=== PATIENT | female | born 1970 ===

== ENCOUNTER 2016-10-14 16:47 | Inpatient (IN) | payer BC ==
[2016-10-14] MEDS ORDERED: Insulin Regular 100 units/ml ONE (17:55)
--- NOTE | 2016-10-14 17:56 | ED PDOC ---
HPI: Wound Care - HPI Time Seen by Provider: 10/14/16 17:33 Chief Complaint (Nursing): Abnormal Skin Integrity Chief Complaint (Provider): skin lesion/DM History Per: Patient Exam Limitations: no limitations Additional Complaint(s): 46yo F in ED for eval of right first toe pain x 1day with redness, swelling and pain now extending to dorsum of foot with worsening pain. pt admits to chills body aches and nausea. Pt states in August she sustained an ulcer to the plantar aspect of her first toe , which she states has been healing , however she noted a flare up yesterday. PT also states she has been having trouble controlling her BS this Week-she is insulin dependent however noted her BS to be over 400 daily. Has an appt her her pmd tomorrow. PMD: [facility] Hx: HTN, DM, Past Medical History Reviewed: Historical Data, Nursing Documentation, Vital Signs Vital Signs: Last Vital Signs Temp 98.5 F 10/14/16 16:56 Pulse 112 H 10/14/16 16:56 Resp 16 10/14/16 16:56 BP 140/78 10/14/16 16:56 Pulse Ox 99 10/14/16 16:56 - Medical History PMH: No Chronic Diseases - Surgical History Surgical History: Cholecystectomy - Family History Family History: States: No Known Family Hx - Allergies Allergies/Adverse Reactions: Allergies Allergy/AdvReac Type Severity Reaction Status Date / Time No Known Allergies Allergy Verified 10/14/16 16:55 Review of Systems ROS Statement: Except As Marked, All Systems Reviewed And Found Negative Constitutional: Positive for: Chills, Malaise. Negative for: Fever Cardiovascular: Negative for: Chest Pain, Palpitations Respiratory: Negative for: Cough, Shortness of Breath Gastrointestinal: Positive for: Nausea. Negative for: Vomiting, Abdominal Pain Musculoskeletal: Positive for: Foot Pain Physical Exam - Reviewed Nursing Documentation Reviewed: Yes Vital Signs Reviewed: Yes - Physical Exam Appears: Positive for: Non-toxic, No Acute Distress, Uncomfortable Head Exam: Positive for: ATRAUMATIC, NORMAL INSPECTION, NORMOCEPHALIC Skin: Positive for: Normal Color, Warm, DRY Cardiovascular/Chest: Positive for: Regular Rate, Rhythm Respiratory: Positive for: CNT, Normal Breath Sounds Gastrointestinal/Abdominal: Positive for: Normal Exam, Bowel Sounds, Soft Extremity: Positive for: Other (right foot: first digit plantar aspect- ulceration, pus formation, erythema with streaking . erythema with streaking noted to medial asepct of foot and to dorsum of foot and warmth with pain on ROM. no draainge from wound site. good pulses. ) Neurologic/Psych: Positive for: Alert, Oriented - Laboratory Results Result Diagrams: 10/14/16 17:55 10/14/16 17:55 - ECG O2 Sat by Pulse Oximetry: 99 - Progress ED Course And Treament: impression: foot cellulites-will get xray of foot, labs- ESR, Bld Cx, CBC/CMP/UA /ABG impression: uncontrolled BS-will get 1NS fluid bolus, insulin Regular 8mg, podiatry consulted will see pt will give pt zosyn IV. Condition: Re-examined (ABG-no anion gap. ) Medical Decision Making Medical Decision Making: Pt will be admitted to [facility] for uncontrolled DM and cellulites. Disposition - Clinical Impression Clinical Impression: Uncontrolled diabetes mellitus, Cellulitis - Patient ED Disposition Is Patient to be Admitted: Yes - Disposition Disposition Time: 19:21 Condition: STABLE - Pt Status Changed To: Hospital Disposition Of: Inpatient - Admit Certification Admit to Inpatient:: After my assessment, the patient will require hospitalization for at least two midnights. This is because of the severity of symptoms shown, intensity of services needed, and/or the medical risk in this patient being treated as an outpatient. - POA Present On Arrival: Poor Glycemic Control
[2016-10-14] MEDS ORDERED: Sodium Chloride 0.9% 1,000 ML IV STA (17:57)
[2016-10-14] MEDS: Insulin Regular 100 units/ml IVP SCH (18:07)
[2016-10-14 18:08] LABS: BASO # 0.1 K/uL (0.0-0.2); BASO % 0.8 % (0.0-2.0); EOS # 0.2 K/uL (0.0-0.7); EOS % 1.9 % (0.0-4.0); HEMATOCRIT 38.9 % (34.0-47.0); LYMPH # 3.6 K/uL (1.0-4.3); LYMPH % 31.8 % (20.0-40.0); MEAN CELL VOLUME 85.7 fl (81.0-99.0); MEAN CORPUSCULAR HEMOGLOBIN 28.5 pg (27.0-31.0); MEAN CORPUSCULAR HGB CONC 33.2 g/dL (33.0-37.0); MEAN PLATELET VOLUME 8.3 fl (7.2-11.7); MONO # 0.6 K/uL (0.0-0.8); MONO % 5.2 % (0.0-10.0); NEUT # 6.8 K/uL (1.8-7.0); NEUT % 60.3 % (50.0-75.0); RED CELL DISTRIBUTION WIDTH 12.9 % (11.5-14.5); WHITE BLOOD COUNT 11.3 K/uL (4.8-10.8)
[2016-10-14 18:14] LABS: RBC URINE 5 /hpf (0-3); URINE BACTERIA RARE (<OCC); URINE BILIRUBIN NEGATIVE (NEGATIVE); URINE BLOOD MODERATE (NEGATIVE); URINE COLOR STRAW (YELLOW); URINE GLUCOSE (UA) >=500 mg/dL (Normal); URINE KETONE NEGATIVE (NEGATIVE); URINE LEUKOCYTE ESTERASE TRACE Leu/uL (Negative); URINE PROTEIN 30 mg/dL (NEGATIVE); URINE UROBILINOGEN 0.2-1.0 mg/dL (0.2-1.0); WBC URINE 1 /hpf (0-5)
[2016-10-14 18:20] LABS: ALB/GLOB RATIO 1.2 (1.0-2.1); ALKALINE PHOSPHATASE 105 U/L (38-126); ALT/SGPT 27 U/L (9-52); AST/SGOT 16 U/L (14-36); BILIRUBIN,TOTAL 0.3 mg/dl (0.2-1.3); BLOOD UREA NITROGEN 13 mg/dl (7-17); CALCIUM 9.5 mg/dL (8.4-10.2); CARBON DIOXIDE 26 mmol/L (22-30); CHLORIDE 97 mmol/L (98-107); GFR AFRICAN-AMERICAN > 60; POTASSIUM 4.2 MMOL/L (3.6-5.0); SODIUM 130 mmol/l (132-148); TOTAL PROTEIN 7.4 G/DL (6.3-8.2)
[2016-10-14 18:33] LABS: GLUCOSE,RANDOM 442 mg/dL (65-105)
[2016-10-14 18:51] LABS: ABG ALLEN TEST YES; ARTERIAL BLOOD GAS O2 CAPACITY 15.6 mL/dL (16-24); ARTERIAL BLOOD GAS O2 CONTENT 15.6 ML/dL (15-23); ARTERIAL BLOOD GAS PH 7.43 (7.35-7.45); ARTERIAL BLOOD GAS PO2 79 mm/Hg (80-100); ARTERIAL BLOOD HGB O2 SAT 91.4 % (95.0-98.0); CARBOXYHEMOGLOBIN 6.4 % (0.5-1.5); HHB -0.2 % (0.0-5.0); METHEMOGLOBIN 2.4 % (0.0-3.0)
[2016-10-14] MEDS ORDERED: Piperacillin/Tazobact 3.375 GM in Sodium Chloride 0.9% 100 ML IVPB STA (19:04)
[2016-10-14] MEDS ORDERED: Piperacillin/Tazobact 3.375 gm Inj IVPB ONE (19:37)
--- NOTE | 2016-10-14 19:39 | CP.PCM.HP ---
<Palmira Dixon - Last Filed: 10/14/16 21:43> History of Present Illness - History of Present Illness History of Present Illness: CC: Chills, RIGHT toe pain 46F p/w worsening RIGHT great toe pain over the past 2 days associated with chills for the past 3-4 days especially at night, but denies fevers. Also, she reports inability to control her sugars for "a while now". Patient describes original injury was after walking "alot" in [place] and family noticed blister and bleeding in August, and received a topical antibiotic with partial improvement, but now acutely worsening. Otherwise, she denies any dizziness, headaches, SOB , chest pain/palpitations, vomiting, abdominal pain, dysuria, diarrhea. However , she has been having fatigue, polydipsia, and polyuria. PMD: [facility] PMH: DM, HTN PSH: Lap Yolanda, C-sxn x2, partial Hysterectomy Smoke: 1/2-1ppk/ day for 25 years Alcohol: Occ ALL: NKDA LOBO: See Med Rec ED COURSE VSS: 36.9- 112- 140/78- 16- 99% CBC: 11.3> 12.9/38.9< 286 CMP: 138C/4.2- 97L/26- 13/0.7, Gluc- 442, Ca-9.5, TBili- 0.3, ALP/AST/ALT- 105/ 16/27, TProt/Alb- 7.4/4.1 ABG: pH-7.43 ESR: 44 BCx: PENDING UA: Negative for Ketones, LE- trace, Blood-pos, RBC- 5H RIGHT foot X-rays: Official read pending NS 1L bolus x1 Insulin 8U, IV Present on Admission - Present on Admission Any Indicators Present on Admission: Yes History of Uncontrolled Diabetes: Yes Review of Systems - Review of Systems All systems: reviewed and no additional remarkable complaints except - Constitutional Constitutional: Chills - Gastrointestinal Gastrointestinal: Nausea - Endocrine Endocrine: Polydipsia, Polyuria Past Patient History - ENDOCRINE/METABOLIC Hx Diabetes Mellitus Type 2: Yes - PSYCHIATRIC Hx Substance Use: No - SURGICAL HISTORY Hx Cholecystectomy: Yes - ANESTHESIA Hx Anesthesia: Yes Hx Anesthesia Reactions: No Meds Allergies/Adverse Reactions: Allergies Allergy/AdvReac Type Severity Reaction Status Date / Time No Known Allergies Allergy Verified 10/14/16 16:55 Physical Exam - Constitutional Appears: Well, Non-toxic, No Acute Distress - Head Exam Head Exam: ATRAUMATIC, NORMAL INSPECTION - Eye Exam Eye Exam: EOMI, PERRL - ENT Exam ENT Exam: Mucous Membranes Moist, Normal Exam - Neck Exam Neck exam: Positive for: Full Rom, Normal Inspection. Negative for: Lymphadenopathy - Respiratory Exam Respiratory Exam: Clear to Auscultation Bilateral, NORMAL BREATHING PATTERN. absent: Rales, Wheezes - Cardiovascular Exam Cardiovascular Exam: REGULAR RHYTHM. absent: JVD - GI/Abdominal Exam GI & Abdominal Exam: Normal Bowel Sounds, Soft. absent: Tenderness - Extremities Exam Extremities exam: Positive for: full ROM, joint swelling (RIGHT great MCP), normal capillary refill, tenderness (RIGHT great toe see below), pedal pulses present. Negative for: calf tenderness - Expanded Lower Extremities Exam Right Foot/Toe exam: erythema (Right great MCP, non-blanchable), swelling (Right great toe and dorsum of foot). absent: crepitus, normal inspection (Original injury was blister in August/2016 that never really went away), tenderness ( patient cannot feel), tenderness at base of 5th metatarsal (discoloration at plantar aspect) - Neurological Exam Neurological exam: Alert, Oriented x3 - Psychiatric Exam Psychiatric exam: Normal Affect, Normal Mood - Skin Skin Exam: Normal Color, Warm Results - Vital Signs Recent Vital Signs: Last Vital Signs Temp 36.9 C 10/14/16 16:56 Pulse 90 10/14/16 19:36 Resp 16 10/14/16 19:36 BP 142/89 10/14/16 19:36 Pulse Ox 100 10/14/16 19:36 - Labs Result Diagrams: 10/14/16 17:55 10/14/16 17:55 Assessment & Plan (1) Infected blister of great toe of right foot Assessment and Plan: Concerning for underlying bony involvement given incomplete healing over 2 months. X-rays negative, however will likely require bedside debridement and MRI. - Podiatry Consult - ID Consult (Dr Hammnod) - Zosyn 3.375mg, IV, Q6H Status: Acute (2) Diabetes Assessment and Plan: Uncontrolled and apparently a chronic issue. This admission no concern for DKA or HHS. Will start pt on Glyburide. - Referral to [employer] placed - Resume Levemir 22U, SC, HS - Accu-check ACHS - SSI, Lispro, moderate - Glyburide 5mg, PO, ACB - Hypoglycemic Bundle - Hgb A1C: PENDING - MOD CHO Status: Acute (3) Hypertension Assessment and Plan: Stable. Not at target in the ED, but will monitor and adjust as necessary after patient is settled. - Resume home medication - Trend BP Status: Acute (4) DVT prophylaxis Assessment and Plan: Lovenox 40mg, SC, HS Status: Acute <Mt Gregg - Last Filed: 10/19/16 07:10> Results - Vital Signs Recent Vital Signs: Last Vital Signs Temp 99.4 F 10/16/16 16:03 Pulse 70 10/16/16 16:03 Resp 18 10/16/16 16:03 BP 155/93 H 10/16/16 16:03 Pulse Ox 96 10/16/16 16:03 - Labs Result Diagrams: 10/16/16 05:30 10/16/16 05:30 Attending/Attestation - Attestation I have personally seen and examined this patient.: Yes I have fully participated in the care of the patient.: Yes I have reviewed all pertinent clinical information: Yes
[2016-10-14] MEDS ORDERED: Glucagon Recombinant 1 mg Inj IM PRN (19:47)
[2016-10-14] MEDS ORDERED: Dextrose 50% SYRINGE Inj (50 ml) IV PRN (19:47)
--- NOTE | 2016-10-14 21:23 | CP.PCM.CON ---
History of Present Illness - History of Present Illness History of Present Illness: 46 y/o female with pmhx of DM and HTN seen at bedside for right foot redness and swelling. She states that she has had severe pain and chills over the past 2 days, but denies any fevers. She states that she was walking a lot in [place] and her family noticed she was bleeding from her foot that a blister had popped, she went to her PCP and he gave her a cream to apply topically which she state helped a lot. Patient states that the blister reformed and now has caused pain, redness and swelling to her right big toe. Patient denies any other pedal complaints. SHe denies any trauma to her foot. Patient denies n/f/v/d/c/sob PMD: [facility] PMH: DM, HTN PSH: [place] Torressxn x2, partial Hysterectomy Smoke: 1/2-1ppk/ day for 25 years Alcohol: Occ ALL: NKDA LOBO: See Med Rec Review of Systems - Constitutional Constitutional: As Per HPI Past Patient History - Past Social History Smoking Status: Never Smoked - CARDIAC Hx Cardiac Disorders: Yes (HTN) - ENDOCRINE/METABOLIC Hx Diabetes Mellitus Type 2: Yes - PSYCHIATRIC Hx Substance Use: No - SURGICAL HISTORY Hx Cholecystectomy: Yes - ANESTHESIA Hx Anesthesia: Yes Hx Anesthesia Reactions: No Meds Allergies/Adverse Reactions: Allergies Allergy/AdvReac Type Severity Reaction Status Date / Time No Known Allergies Allergy Verified 10/14/16 16:55 - Medications Medications: Current Medications Acetaminophen (Tylenol 325mg Tab) 650 mg PO Q4 PRN PRN Reason: Pain, Mild (1-3) Atorvastatin Calcium (Lipitor) 10 mg PO HS [facility] Dextrose (Dextrose 50% Inj) 0 ml IV STAT PRN; Protocol PRN Reason: Hyglycemia Protocol Dextrose (Glutose 15) 0 gm PO ONCE PRN; Protocol PRN Reason: Hypoglycemia Protocol Enoxaparin Sodium (Lovenox) 40 mg SC HS [facility] PRN Reason: Protocol Glucagon (Glucagen Diagnostic Kit) 0 mg IM STAT PRN; Protocol PRN Reason: Hypoglycemia Protocol Piperacillin Sod/Tazobactam (Sod 3.375 gm/ Sodium Chloride) 100 mls @ 100 mls/ hr IVPB Q6 [facility] Insulin Detemir (Levemir) 22 units SC HS [facility] Insulin Human Lispro (Humalog) 0 units SC ACTID [facility] PRN Reason: Protocol Insulin Human Regular (Humulin R) 8 units IVP ACCU-CHECK [facility] Last Admin: 10/14/16 18:07 Dose: 8 unit Ketorolac Tromethamine (Toradol) 15 mg IVP Q6 PRN PRN Reason: Pain, moderate (4-7) Ketorolac Tromethamine (Toradol) 30 mg IVP Q6 PRN PRN Reason: Pain, severe (8-10) Mirtazapine (Remeron) 15 mg PO HS [facility] Ramipril (Altace) 5 mg PO HS [facility] Physical Exam - Constitutional Appears: Well, Non-toxic, No Acute Distress - Extremities Exam Additional comments: Vasc: DP/PT 2/4 b/l, TG wnl, CFT < 3sec to all digits neuro: grossly diminished derm: blister formation noted to plantar right hallux with necrotic center, erythema and edema noted to right hallux extending proximally to midfoot, mildly fluctuant, no malodor, no drainage, no active bleeding, no tunneling or undermining ortho: pain on palpation to right hallux Results - Vital Signs Recent Vital Signs: Last Vital Signs Temp 98.5 F 10/14/16 20:56 Pulse 85 10/14/16 20:56 Resp 20 10/14/16 20:56 BP 141/88 10/14/16 20:56 Pulse Ox 99 10/14/16 20:56 - Labs Result Diagrams: 10/14/16 17:55 10/14/16 17:55 Assessment & Plan - Assessment and Plan (Free Text) Assessment: 46 y/o female seen at bedside with pmhx of DM and HTN for right foot cellulitis secondary to diabetes Plan: patient evaluated and chart reviewed discussed in detail with attending Dr. Ziegler labs and vitals reviewed; afebrile, WBC 11. 3 X rays show no fracture or dislocation, soft tissue edema applied DSD to right foot f/u with wound cx and debridement tomorrow continue IV abx, as per ID recs podiatry will continue to follow
[2016-10-14] MEDS: Piperacillin/Tazobact 3.375 GM in Sodium Chloride 0.9% 100 ML IVPB SCH (21:28)
[2016-10-14] MEDS: Enoxaparin 40 mg Syringe SC SCH (21:30)
[2016-10-14] MEDS: Insulin Detemir 100 Units/ml Inj SC SCH (22:36)
[2016-10-14] MEDS: Insulin Lispro (humaLOG) 100 Units/ml Inj SC SCH (22:37)
[2016-10-14] MEDS ORDERED: Insulin Regular 100 units/ml SC SCH (23:00)
[2016-10-15] MEDS: Piperacillin/Tazobact 3.375 GM in Sodium Chloride 0.9% 100 ML IVPB SCH ×4 (04:32→22:03)
[2016-10-15] MEDS: Insulin Regular 100 units/ml IVP SCH ×2 (06:15→14:21)
[2016-10-15 06:51] LABS: HEMATOCRIT 34.3 % (34.0-47.0); MEAN CELL VOLUME 84.5 fl (81.0-99.0); MEAN CORPUSCULAR HEMOGLOBIN 28.7 pg (27.0-31.0); RED CELL DISTRIBUTION WIDTH 13.4 % (11.5-14.5); WHITE BLOOD COUNT 9.6 K/uL (4.8-10.8)
--- NOTE | 2016-10-15 06:51 | CP.PCM.PN ---
<Viri Marie - Last Filed: 10/15/16 17:32> Subjective - Date & Time of Evaluation Date of Evaluation: 10/15/16 Time of Evaluation: 07:10 - Subjective Subjective: Patient denies any acute events overnight. States she numbness of her feet bilaterally and not currently pain, overall feels well. Denies fever, sob, chest pain, abdominal pain, nausea vomiting. Objective - Vital Signs/Intake and Output Vital Signs (last 24 hours): Temp Pulse Resp BP Pulse Ox 98.5 F 85 20 141/88 99 10/14/16 20:56 10/14/16 21:50 10/14/16 21:50 10/14/16 21:30 10/14/16 21:50 - Medications Medications: Current Medications Acetaminophen (Tylenol 325mg Tab) 650 mg PO Q4 PRN PRN Reason: Pain, Mild (1-3) Atorvastatin Calcium (Lipitor) 10 mg PO HS [facility] Last Admin: 10/14/16 21:30 Dose: 10 mg Dextrose (Dextrose 50% Inj) 0 ml IV STAT PRN; Protocol PRN Reason: Hyglycemia Protocol Dextrose (Glutose 15) 0 gm PO ONCE PRN; Protocol PRN Reason: Hypoglycemia Protocol Enoxaparin Sodium (Lovenox) 40 mg SC HS [facility] PRN Reason: Protocol Last Admin: 10/14/16 21:30 Dose: 40 mg Glucagon (Glucagen Diagnostic Kit) 0 mg IM STAT PRN; Protocol PRN Reason: Hypoglycemia Protocol Glyburide (Micronase) 5 mg PO BRK [facility] Piperacillin Sod/Tazobactam (Sod 3.375 gm/ Sodium Chloride) 100 mls @ 100 mls/ hr IVPB Q6 [facility] Last Admin: 10/15/16 04:32 Dose: 100 mls/hr Insulin Detemir (Levemir) 22 units SC HS [facility] Last Admin: 10/14/16 22:36 Dose: 22 units Insulin Human Lispro (Humalog) 0 units SC ACTID [facility] PRN Reason: Protocol Last Admin: 10/14/16 22:37 Dose: 3 units Insulin Human Regular (Humulin R) 8 units IVP ACCU-CHECK [facility] Last Admin: 10/15/16 06:15 Dose: 8 unit Ketorolac Tromethamine (Toradol) 15 mg IVP Q6 PRN PRN Reason: Pain, moderate (4-7) Ketorolac Tromethamine (Toradol) 30 mg IVP Q6 PRN PRN Reason: Pain, severe (8-10) Mirtazapine (Remeron) 15 mg PO HS [facility] Last Admin: 10/14/16 21:30 Dose: 15 mg Ramipril (Altace) 5 mg PO [facility] Last Admin: 10/14/16 21:30 Dose: 5 mg - Constitutional Appears: Non-toxic, No Acute Distress - Eye Exam Eye Exam: Normal appearance - ENT Exam ENT Exam: Mucous Membranes Moist - Respiratory Exam Respiratory Exam: NORMAL BREATHING PATTERN - Cardiovascular Exam Cardiovascular Exam: REGULAR RHYTHM, +S1, +S2 - GI/Abdominal Exam GI & Abdominal Exam: Soft, Normal Bowel Sounds. absent: Tenderness - Extremities Exam Extremities Exam: absent: Calf Tenderness, Pedal Edema Additional comments: foot exam: b/l pulses palpable, sensation diminished - Neurological Exam Neurological Exam: Awake, CN II-XII Intact, Oriented x3 - Psychiatric Exam Psychiatric exam: Normal Affect, Normal Mood - Skin Additional comments: right hallux: necrotic center, erythema and edema extending proximally, no malodor or drainage Assessment and Plan - Assessment and Plan (Free Text) Assessment: 46 year old female with uncontrolled DM admitted for infections of great toe of right foot. rule out osteomyelitis (1) Infected blister of great toe of right foot Assessment and Plan: Concerning for underlying bony involvement given incomplete healing over 2 months. - Podiatry following, bedside debridement done MRI done pending report - ESR 44 - Podiatry Consult - ID Consult (Dr Hammond) - Zosyn 3.375mg, IV, Q6H Status: Acute (2) Diabetes Assessment and Plan: Uncontrolled and apparently a chronic issue. This admission no concern for DKA or HHS. Will start pt on Glyburide. - Referral to [employer] placed - Resume Levemir 22U, SC, HS - Accu-check ACHS - SSI, Lispro, moderate - Hypoglycemic Bundle - Hgb A1C: 12 - MOD CHO Status: Acute (3) Hypertension Assessment and Plan: chronic, Stable.- Resume home medication Status: Acute (4) DVT prophylaxis Assessment and Plan: Lovenox 40mg, SC, HS Status: Acute <Leroy Moralez - Last Filed: 10/16/16 06:43> Objective - Vital Signs/Intake and Output Vital Signs (last 24 hours): Temp Pulse Resp BP Pulse Ox 99.5 F 81 20 140/84 99 10/16/16 00:46 10/16/16 00:46 10/16/16 00:46 10/16/16 00:46 10/16/16 00:46 - Medications Medications: Current Medications Acetaminophen (Tylenol 325mg Tab) 650 mg PO Q4 PRN PRN Reason: Pain, Mild (1-3) Last Admin: 10/15/16 23:47 Dose: 650 mg Atorvastatin Calcium (Lipitor) 10 mg PO HS [facility] Last Admin: 10/15/16 22:04 Dose: 10 mg Dextrose (Dextrose 50% Inj) 0 ml IV STAT PRN; Protocol PRN Reason: Hyglycemia Protocol Dextrose (Glutose 15) 0 gm PO ONCE PRN; Protocol PRN Reason: Hypoglycemia Protocol Enoxaparin Sodium (Lovenox) 40 mg SC HS [facility] PRN Reason: Protocol Last Admin: 10/15/16 22:05 Dose: 40 mg Glucagon (Glucagen Diagnostic Kit) 0 mg IM STAT PRN; Protocol PRN Reason: Hypoglycemia Protocol Piperacillin Sod/Tazobactam (Sod 3.375 gm/ Sodium Chloride) 100 mls @ 100 mls/ hr IVPB Q6 [facility] Last Admin: 10/16/16 04:32 Dose: 100 mls/hr Insulin Detemir (Levemir) 22 units SC [facility] Last Admin: 10/15/16 22:04 Dose: 22 units Insulin Human Lispro (Humalog) [facility]: Protocol Last Admin: 10/15/16 16:30 Dose: 4 units Ketorolac Tromethamine (Toradol) 15 mg IVP Q6 PRN PRN Reason: Pain, moderate (4-7) Last Admin: 10/15/16 12:13 Dose: 15 mg Ketorolac Tromethamine (Toradol) 30 mg IVP Q6 PRN PRN Reason: Pain, severe (8-10) Mirtazapine (Remeron) 15 mg PO [facility] Last Admin: 10/15/16 22:03 Dose: 15 mg Nicotine (Nicoderm Cq) 1 patch TD DAILY [facility] Last Admin: 10/15/16 16:24 Dose: 1 patch Ramipril (Altace) 5 mg PO [facility] Last Admin: 10/15/16 22:03 Dose: 5 mg - Labs Labs: 10/15/16 05:40 10/15/16 05:40 Attending/Attestation - Attestation I have personally seen and examined this patient.: Yes I have fully participated in the care of the patient.: Yes I have reviewed all pertinent clinical information, including history, physical exam and plan: Yes
[2016-10-15 07:08] LABS: BLOOD UREA NITROGEN 13 mg/dl (7-17); CALCIUM 8.6 mg/dL (8.4-10.2); CARBON DIOXIDE 25 mmol/L (22-30); CHLORIDE 105 mmol/L (98-107); GFR AFRICAN-AMERICAN > 60; GLUCOSE,RANDOM 191 mg/dL (65-105); POTASSIUM 3.4 MMOL/L (3.6-5.0); SODIUM 137 mmol/l (132-148)
[2016-10-15] MEDS: Insulin Lispro (humaLOG) 100 Units/ml Inj SC SCH ×3 (08:30→16:30)
[2016-10-15] MEDS ORDERED: Povidone Iodine Topical 10% Sol ONE (11:41)
--- NOTE | 2016-10-15 12:11 | CP.PCM.PN ---
Subjective - Date & Time of Evaluation Date of Evaluation: 10/15/16 Time of Evaluation: 12:09 - Subjective Subjective: 46 y/o female seen at bedside with attending Dr. Ziegler for right foot cellulitis. Patient denies any acute events overnight. She states that her toe feels numb but also a little painful. Patient denies any other pedal complaints at this time. Dressing remains clean,dry,intact. Patient denies n/f/v/d/c/sob. Objective - Vital Signs/Intake and Output Vital Signs (last 24 hours): Temp Pulse Resp BP Pulse Ox 98.4 F 79 20 112/76 98 10/15/16 08:07 10/15/16 08:07 10/15/16 08:07 10/15/16 08:07 10/15/16 08:07 - Medications Medications: Current Medications Acetaminophen (Tylenol 325mg Tab) 650 mg PO Q4 PRN PRN Reason: Pain, Mild (1-3) Atorvastatin Calcium (Lipitor) 10 mg PO HS [facility] Last Admin: 10/14/16 21:30 Dose: 10 mg Dextrose (Dextrose 50% Inj) 0 ml IV STAT PRN; Protocol PRN Reason: Hyglycemia Protocol Dextrose (Glutose 15) 0 gm PO ONCE PRN; Protocol PRN Reason: Hypoglycemia Protocol Enoxaparin Sodium (Lovenox) 40 mg SC HS [facility] PRN Reason: Protocol Last Admin: 10/14/16 21:30 Dose: 40 mg Glucagon (Glucagen Diagnostic Kit) 0 mg IM STAT PRN; Protocol PRN Reason: Hypoglycemia Protocol Glyburide (Micronase) 5 mg PO BRK [facility] Last Admin: 10/15/16 08:30 Dose: 5 mg Piperacillin Sod/Tazobactam (Sod 3.375 gm/ Sodium Chloride) 100 mls @ 100 mls/ hr IVPB Q6 [facility] Last Admin: 10/15/16 09:18 Dose: 100 mls/hr Insulin Detemir (Levemir) 22 units SC [facility] Last Admin: 10/14/16 22:36 Dose: 22 units Insulin Human Lispro (Humalog) 0 units SC ACTID [facility] PRN Reason: Protocol Last Admin: 10/15/16 12:04 Dose: Not Given Insulin Human Regular (Humulin R) 8 units IVP ACCU-CHECK [facility] Last Admin: 06/15/17 06:15 Dose: 8 unit Ketorolac Tromethamine (Toradol) 15 mg IVP Q6 PRN PRN Reason: Pain, moderate (4-7) Ketorolac Tromethamine (Toradol) 30 mg IVP Q6 PRN PRN Reason: Pain, severe (8-10) Mirtazapine (Remeron) 15 mg PO HS [facility] Last Admin: 10/14/16 21:30 Dose: 15 mg Ramipril (Altace) 5 mg PO HS [facility] Last Admin: 10/14/16 21:30 Dose: 5 mg - Labs Labs: 10/15/16 05:40 10/15/16 05:40 - Constitutional Appears: Well, Non-toxic, No Acute Distress - Extremities Exam Additional comments: Vasc: DP/PT 2/4 b/l, TG wnl, CFT < 3sec to all digits neuro: grossly diminished derm: blister formation noted to plantar right hallux with necrotic center, erythema and edema noted to right hallux extending proximally to midfoot, mildly fluctuant, no malodor, no drainage, no active bleeding, no tunneling or undermining ortho: pain on palpation to right hallux - Neurological Exam Neurological Exam: Alert, Awake, Oriented x3 - Psychiatric Exam Psychiatric exam: Normal Affect, Normal Mood Assessment and Plan - Assessment and Plan (Free Text) Assessment: 46 y/o female seen at bedside with pmhx of DM and HTN for right foot cellulitis secondary to diabetes Plan: patient evaluated and chart reviewed seen atbedside with attending Dr. Ziegler labs and vitals reviewed; afebrile, WBC 9.6 bedside I&D performed using #15 blade - expressed 2cc of pus from plantar right hallux superficial ulceration noted underlying the blister that formed with granular base and fibrotic border MRI of RLE ordered wound cx obtained continue IV abx as per ID podiatry will continue to follow while patient remains in house
[2016-10-15] MEDS ORDERED: Gadodiamide 287 MG/ML VIAL (15ML) IV ONE (12:44)
--- NOTE | 2016-10-15 17:32 | RAD ---
PROCEDURE: Right Foot Radiographs. HISTORY: injury great toe COMPARISON: None. FINDINGS: BONES: Normal. No fracture. JOINTS: Normal. SOFT TISSUES: Normal. OTHER FINDINGS: None. IMPRESSION: No acute findings related to/accounting for the clinical presentation.
--- NOTE | 2016-10-15 19:01 | CP.PCM.CON ---
History of Present Illness - History of Present Illness History of Present Illness: referred for right great toe infection which started as a blister empiric iv rx started may have OM MRI pending 46F p/w worsening RIGHT great toe pain over the past 2 days associated with chills for the past 3-4 days especially at night, but denies fevers. Also, she reports inability to control her sugars for "a while now". Patient describes original injury was after walking "alot" in [place] and family noticed blister and bleeding in August, and received a topical antibiotic with partial improvement, but now acutely worsening. PMD: [place] PMH: DM, HTN PSH: Lap Yolanda, C-sxn x2, partial Hysterectomy Smoke: 1/2-1ppk/ day for 25 years Alcohol: Occ ALL: NKDA LOBO: See Med Rec Review of Systems - Constitutional Constitutional: As Per HPI - EENT Eyes: absent: As Per HPI, Blind Spots, Blurred Vision, Change in Vision, Decreased Night Vision, Diplopia, Discharge, Dry Eye, Exophthalmos, Floaters, Irritation, Itchy Eyes, Loss of Peripheral Vision, Pain, Photophobia, Requires Corrective Lenses, Sees Flashes, Spots in Vision, Tunnel Vision, Other Visual Disturbances, Loss of Vision, Other Ears: absent: As Per HPI, Decreased Hearing, Ear Discharge, Ear Pain, Tinnitus, Abnormal Hearing, Disequilibrium, Dizziness, Other Nose/Mouth/Throat: absent: As Per HPI, Epistaxis, Nasal Congestion, Nasal Discharge, Nasal Obstruction, Nasal Trauma, Nose Pain, Post Nasal Drip, Sinus Pain, Sinus Pressure, Bleeding Gums, Change in Voice, Dental Pain, Dry Mouth, Dysphagia, Halitosis, Hoarsness, Lip Swelling, Mouth Lesions, Mouth Pain, Odynophagia, Sore Throat, Throat Swelling, Tongue Swelling, Facial Pain, Neck Pain, Neck Mass, Other - Breasts Breasts: absent: As Per HPI, Change in Shape, Mass, Pain, Nipple Discharge, Nipple Inversion, Skin Changes, Swelling, Other - Cardiovascular Cardiovascular: absent: As Per HPI, Acrocyanosis, Chest Pain, Chest Pain at Rest , Chest Pain with Activity, Claudication, Diaphoresis, Dyspnea, Dyspnea on Exertion, Edema, Irregular Heart Rhythm, Pain Radiating to Arm/Neck/Jaw, Leg Edema, Leg Ulcers, Lightheadedness, Orthopnea, Palpitations, Paroxysmal Nocturnal Dyspnea, Pedal Edema, Radiating Pain, Rapid Heart Rate, Slow Heart Rate, Syncope, Other - Respiratory Respiratory: absent: As Per HPI, Cough, Dyspnea, Hemoptysis, Dyspnea on Exertion , Wheezing, Snoring, Stridor, Pain on Inspiration, Chest Congestion, Excessive Mucous Production, Change in Mucous Color, Pain with Coughing, Other - Gastrointestinal Gastrointestinal: absent: As Per HPI, Abdominal Pain, Belching, Bloating, Change in Bowel Habits, Change in Stool Character, Coffee Ground Emesis, Constipation, Cramping, Diarrhea, Dyspepsia, Dysphagia, Early Satiety, Excessive Flatus, Fecal Incontinence, Heartburn, Hematemesis, Hematochezia, Loose Stools, Melena, Nausea, Odynophagia, Temesmus, Vomiting, Other - Genitourinary Genitourinary: absent: As Per HPI, Change in Urinary Stream, Difficulty Urinating, Dysuria, Flank Pain, Hematuria, Pyuria, Nocturia, Urinary Incontinence, Urinary Frequency, Urinary Hesitance, Urinary Urgency, Voiding Freq/Small Amts, Freq UTI, Hx Renal/Bladder Calculi, Hx /Renal Surgery, Bladder Distension, Other - Reproductive: Female Reproductive:Female: absent: As Per HPI, Amenorrhea, Amenorrhea/ Control, Currently Menstual, Cycle <21 Days, Cycle >35 Days, Cycle Variable, Menses 1-7 Days, Menses >/= 8 Days, Menses Variable, Cycle > 4 Weeks Between, No Menses for 6 Months, Heavy Menses, Light Menses, Normal Menses, Spotting Between Cycles , S/P Hysterectomy, Menopausal, Post Menopausal, Premenarche, Abnormal Vaginal Bleeding, Dysmenorrhea, Dyspareunia, Genital Lesions, Genital Pruritis, Pelvic Pain, Prolapse Symptoms, Sexual Dysfunction, Vaginal Discharge, Vaginal Dryness , Vaginal Odor, Vaginal Pruritis, Other - Menstruation Menstruation: absent: As Per HPI, Amenorrhea, Amenorrhea/ Control, Currently Menstual, Cycle <21 Days, Cycle >35 Days, Cycle Variable, Menses 1-7 Days, Menses >/= 8 Days, Menses Variable, Cycle > 4 Weeks Between, No Menses for 6 Months, Heavy Menses, Light Menses, Normal Menses, Spotting Between Cycles , S/P Hysterectomy, Menopausal, Post Menopausal, Premenarche, Abnormal Vaginal Bleeding, Dysmenorrhea, Other - Musculoskeletal Musculoskeletal: As Per HPI - Integumentary Integumentary: As Per HPI - Neurological Neurological: As Per HPI, Paresthesias - Psychiatric Psychiatric: absent: As Per HPI, Abnormal Sleep Pattern, Anhedonia, Anxiety, Auditory Hallucinations, Behavioral Changes, Change in Appetite, Change in Libido, Confusion, Depression, Difficulty Concentrating, Hallucinations, Homicidal Ideation, Hopelessness, Irritability, Memory Loss, Mood Swings, Panic Attacks, Paranoia, Suicidal Ideation, Visual Hallucinations, Tactile Hallucinations, Other - Endocrine Endocrine: As Per HPI - Hematologic/Lymphatic Hematologic: absent: As Per HPI, Easy Bleeding, Easy Bruising, Lymphadenopathy, Other Past Patient History - Past Medical History & Family History Past Medical History?: Yes - Past Social History Smoking Status: Light Smoker < 10 Cigarettes Daily - CARDIAC Hx Cardiac Disorders: Yes (HTN) - PULMONARY Hx Respiratory Disorders: No - NEUROLOGICAL Hx Neurological Disorder: No - HEENT Hx HEENT Problems: No - RENAL Hx Chronic Kidney Disease: No - ENDOCRINE/METABOLIC Hx Endocrine Disorders: Yes Hx Diabetes Mellitus Type 2: Yes - HEMATOLOGICAL/ONCOLOGICAL Hx Blood Disorders: No - INTEGUMENTARY Hx Dermatological Problems: No - MUSCULOSKELETAL/RHEUMATOLOGICAL Hx Musculoskeletal Disorders: No Hx Falls: No - GASTROINTESTINAL Hx Gastrointestinal Disorders: No - GENITOURINARY/GYNECOLOGICAL Hx Genitourinary Disorders: No - PSYCHIATRIC Hx Psychophysiologic Disorder: No Hx Substance Use: No - SURGICAL HISTORY Hx Surgeries: Yes Hx Cholecystectomy: Yes - ANESTHESIA Hx Anesthesia: Yes Hx Anesthesia Reactions: No Meds Allergies/Adverse Reactions: Allergies Allergy/AdvReac Type Severity Reaction Status Date / Time No Known Allergies Allergy Verified 10/14/16 16:55 - Medications Medications: Current Medications Acetaminophen (Tylenol 325mg Tab) 650 mg PO Q4 PRN PRN Reason: Pain, Mild (1-3) Last Admin: 10/15/16 16:28 Dose: 650 mg Atorvastatin Calcium (Lipitor) 10 mg PO HS [facility] Last Admin: 10/14/16 21:30 Dose: 10 mg Dextrose (Dextrose 50% Inj) 0 ml IV STAT PRN; Protocol PRN Reason: Hyglycemia Protocol Dextrose (Glutose 15) 0 gm PO ONCE PRN; Protocol PRN Reason: Hypoglycemia Protocol Enoxaparin Sodium (Lovenox) 40 mg SC HS [facility] PRN Reason: Protocol Last Admin: 10/14/16 21:30 Dose: 40 mg Glucagon (Glucagen Diagnostic Kit) 0 mg IM STAT PRN; Protocol PRN Reason: Hypoglycemia Protocol Piperacillin Sod/Tazobactam (Sod 3.375 gm/ Sodium Chloride) 100 mls @ 100 mls/ hr IVPB Q6 [facility] Last Admin: 10/15/16 16:25 Dose: 100 mls/hr Insulin Detemir (Levemir) 22 units SC HS [facility] Last Admin: 10/14/16 22:36 Dose: 22 units Insulin Human Lispro (Humalog) 0 units SC ACTID [facility] PRN Reason: Protocol Last Admin: 10/15/16 16:30 Dose: 4 units Ketorolac Tromethamine (Toradol) 15 mg IVP Q6 PRN PRN Reason: Pain, moderate (4-7) Last Admin: 10/15/16 12:13 Dose: 15 mg Ketorolac Tromethamine (Toradol) 30 mg IVP Q6 PRN PRN Reason: Pain, severe (8-10) Mirtazapine (Remeron) 15 mg PO [facility] Last Admin: 10/14/16 21:30 Dose: 15 mg Nicotine (Nicoderm Cq) 1 patch TD DAILY [facility] Last Admin: 10/15/16 16:24 Dose: 1 patch Ramipril (Altace) 5 mg PO [facility] Last Admin: 10/14/16 21:30 Dose: 5 mg Physical Exam - Constitutional Appears: Non-toxic, Chronically Ill - Head Exam Head Exam: ATRAUMATIC, NORMAL INSPECTION, NORMOCEPHALIC - Eye Exam Eye Exam: EOMI, PERRL. absent: Scleral icterus - ENT Exam ENT Exam: Mucous Membranes Dry, Normal External Ear Exam, Normal Oropharynx - Neck Exam Neck exam: Negative for: Lymphadenopathy, Thyromegaly - Respiratory Exam Respiratory Exam: Decreased Breath Sounds, Clear to Auscultation Bilateral - Cardiovascular Exam Cardiovascular Exam: REGULAR RHYTHM, +S1, +S2 - GI/Abdominal Exam GI & Abdominal Exam: Diminished Bowel Sounds, Soft. absent: Tenderness - Rectal Exam Rectal Exam: Deferred - Exam Exam: NORMAL INSPECTION - Extremities Exam Extremities exam: Positive for: pedal edema, tenderness, pedal pulses present. Negative for: calf tenderness Additional comments: ulcer right hallux / cellulitis - Back Exam Back exam: absent: CVA tenderness (L), CVA tenderness (R) - Neurological Exam Neurological exam: Alert, CN II-XII Intact, Oriented x3, Reflexes Normal - Psychiatric Exam Psychiatric exam: Normal Mood - Skin Skin Exam: Dry, Intact Results - Vital Signs Recent Vital Signs: Last Vital Signs Temp 98.2 F 10/15/16 16:10 Pulse 82 10/15/16 16:10 Resp 18 10/15/16 16:10 BP 124/84 10/15/16 16:10 Pulse Ox 97 10/15/16 16:10 - Labs Result Diagrams: 10/16/16 05:30 10/16/16 05:30 Labs: Laboratory Results - last 24 hr 10/14/16 10/14/16 10/15/16 19:47 21:48 05:24 WBC RBC Hgb Hct MCV MCH MCHC RDW Plt Count Sodium Potassium Chloride Carbon Dioxide Anion Gap BUN Creatinine Est GFR ( Amer) Est GFR (Non-Af Amer) POC Glucose (mg/dL) 352 H 213 H Random Glucose Hemoglobin A1c 12.0 H Calcium 10/15/16 10/15/16 10/15/16 05:40 05:40 10:34 WBC 9.6 RBC 4.06 Hgb 11.7 L Hct 34.3 MCV 84.5 MCH 28.7 MCHC 34.0 RDW 13.4 Plt Count 262 Sodium 137 Potassium 3.4 L Chloride 105 Carbon Dioxide 25 Anion Gap 10 BUN 13 Creatinine 0.7 Est GFR ( Amer) > 60 Est GFR (Non-Af Amer) > 60 POC Glucose (mg/dL) 132 H Random Glucose 191 H Hemoglobin A1c Calcium 8.6 10/15/16 16:24 WBC RBC Hgb Hct MCV MCH MCHC RDW Plt Count Sodium Potassium Chloride Carbon Dioxide Anion Gap BUN Creatinine Est GFR ( Amer) Est GFR (Non-Af Amer) POC Glucose (mg/dL) 252 H Random Glucose Hemoglobin A1c Calcium Assessment & Plan (1) Cellulitis Status: Acute (2) Diabetes Status: Acute (3) Hypertension Status: Acute (4) Infected blister of great toe of right foot Status: Acute (5) Uncontrolled diabetes mellitus Status: Acute - Assessment and Plan (Free Text) Assessment: await MRI cont iv rx and wound care
[2016-10-15] MEDS: Insulin Detemir 100 Units/ml Inj SC SCH (22:04)
[2016-10-15] MEDS: Enoxaparin 40 mg Syringe SC SCH (22:05)
[2016-10-16] MEDS: Piperacillin/Tazobact 3.375 GM in Sodium Chloride 0.9% 100 ML IVPB SCH ×2 (04:32→09:46)
--- NOTE | 2016-10-16 06:23 | CP.PCM.PN ---
Subjective - Date & Time of Evaluation Date of Evaluation: 10/16/16 Time of Evaluation: 06:21 - Subjective Subjective: 46 year old female seen at bedside for right foot ulcer at hallux. Patient denies any acute overnight events. She states that her pain is greatly decreased from yesterday and that she is feeling much better. Patient denies any further pedal complaints at this time. Dressing remains C/D/I with no signs of strikethrough. Patient denies N/V/F/C/CP/SOB Objective - Vital Signs/Intake and Output Vital Signs (last 24 hours): Temp Pulse Resp BP Pulse Ox 99.5 F 81 20 140/84 99 10/16/16 00:46 10/16/16 00:46 10/16/16 00:46 10/16/16 00:46 10/16/16 00:46 - Medications Medications: Current Medications Acetaminophen (Tylenol 325mg Tab) 650 mg PO Q4 PRN PRN Reason: Pain, Mild (1-3) Last Admin: 10/15/16 23:47 Dose: 650 mg Atorvastatin Calcium (Lipitor) 10 mg PO HS [facility] Last Admin: 10/15/16 22:04 Dose: 10 mg Dextrose (Dextrose 50% Inj) 0 ml IV STAT PRN; Protocol PRN Reason: Hyglycemia Protocol Dextrose (Glutose 15) 0 gm PO ONCE PRN; Protocol PRN Reason: Hypoglycemia Protocol Enoxaparin Sodium (Lovenox) 40 mg SC HS [facility] PRN Reason: Protocol Last Admin: 10/15/16 22:05 Dose: 40 mg Glucagon (Glucagen Diagnostic Kit) 0 mg IM STAT PRN; Protocol PRN Reason: Hypoglycemia Protocol Piperacillin Sod/Tazobactam (Sod 3.375 gm/ Sodium Chloride) 100 mls @ 100 mls/ hr IVPB Q6 [facility] Last Admin: 10/16/16 04:32 Dose: 100 mls/hr Insulin Detemir (Levemir) 22 units SC HS [facility] Last Admin: 10/15/16 22:04 Dose: 22 units Insulin Human Lispro (Humalog) 0 units SC ACTID [facility] PRN Reason: Protocol Last Admin: 10/15/16 16:30 Dose: 4 units Ketorolac Tromethamine (Toradol) 15 mg IVP Q6 PRN PRN Reason: Pain, moderate (4-7) Last Admin: 10/15/16 12:13 Dose: 15 mg Ketorolac Tromethamine (Toradol) 30 mg IVP Q6 PRN PRN Reason: Pain, severe (8-10) Mirtazapine (Remeron) 15 mg PO HS [facility] Last Admin: 10/15/16 22:03 Dose: 15 mg Nicotine (Nicoderm Cq) 1 patch TD DAILY [facility] Last Admin: 10/15/16 16:24 Dose: 1 patch Ramipril (Altace) 5 mg PO HS [facility] Last Admin: 10/15/16 22:03 Dose: 5 mg - Labs Labs: 10/15/16 05:40 10/15/16 05:40 - Constitutional Appears: Well, Non-toxic, No Acute Distress - Extremities Exam Additional comments: Neuro: Epicritic and protective sensation grossly diminished b/l Vasc: DP/PT pulses 2/4 b/l. CFT <3 seconds to all digits b/l, skin temperature warm to warm from proximal to distal, pedal hair growth appreciated Derm: Approx 0.2 cm ulcer noted to plantar aspect of patients right hallux. Periiwound area is erythematous extending to level of MTPJ. No malodor, purulent drainage or other clinical signs of infection appreciated at this time. No undermining or tunneling noted. Ortho: POP noted to distal right hallux consistent with wound - Neurological Exam Neurological Exam: Alert, Awake, Oriented x3 - Psychiatric Exam Psychiatric exam: Normal Affect, Normal Mood Assessment and Plan - Assessment and Plan (Free Text) Assessment: 46 year old female seen at bedside with PMH of DM and HTN for ulcer of right hallux secondary to diabetes Plan: Patient evaluated and chart reviewed Seen at bedside Labs and vitals reviewed: afebrile, HgA1C: 12.0 DSD with betadine applied to site of ulcer without incident MRI of RLE results pending Continue IV abx as per ID Podiatry will continue to follow
[2016-10-16 07:00] LABS: BLOOD UREA NITROGEN 13 mg/dl (7-17); CALCIUM 8.5 mg/dL (8.4-10.2); CARBON DIOXIDE 26 mmol/L (22-30); CHLORIDE 106 mmol/L (98-107); GFR AFRICAN-AMERICAN > 60; GLUCOSE,RANDOM 196 mg/dL (65-105); HEMATOCRIT 33.8 % (34.0-47.0); MEAN CELL VOLUME 85.4 fl (81.0-99.0); MEAN CORPUSCULAR HEMOGLOBIN 28.8 pg (27.0-31.0); MEAN CORPUSCULAR HGB CONC 33.7 g/dL (33.0-37.0); POTASSIUM 3.8 MMOL/L (3.6-5.0); RED CELL DISTRIBUTION WIDTH 13.1 % (11.5-14.5); SODIUM 138 mmol/l (132-148); WHITE BLOOD COUNT 10.4 K/uL (4.8-10.8)
--- NOTE | 2016-10-16 07:49 | CP.PCM.PN ---
<Viri Marie - Last Filed: 10/16/16 16:57> Subjective - Date & Time of Evaluation Date of Evaluation: 10/16/16 Time of Evaluation: 07:20 - Subjective Subjective: No acute events overnight. Patient seen and examined with Dr. Moralez and family medicine team. Patient reports less pain today. Slept well, nicotine patch no longer burning. Pending MRI report. Continue IV antibiotics for now. Objective - Vital Signs/Intake and Output Vital Signs (last 24 hours): Temp Pulse Resp BP Pulse Ox 99.5 F 81 20 140/84 99 10/16/16 00:46 10/16/16 00:46 10/16/16 00:46 10/16/16 00:46 10/16/16 00:46 - Medications Medications: Current Medications Acetaminophen (Tylenol 325mg Tab) 650 mg PO Q4 PRN PRN Reason: Pain, Mild (1-3) Last Admin: 10/15/16 23:47 Dose: 650 mg Atorvastatin Calcium (Lipitor) 10 mg PO HS [facility] Last Admin: 10/15/16 22:04 Dose: 10 mg Dextrose (Dextrose 50% Inj) 0 ml IV STAT PRN; Protocol PRN Reason: Hyglycemia Protocol Dextrose (Glutose 15) 0 gm PO ONCE PRN; Protocol PRN Reason: Hypoglycemia Protocol Enoxaparin Sodium (Lovenox) 40 mg SC HS [facility] PRN Reason: Protocol Last Admin: 10/15/16 22:05 Dose: 40 mg Glucagon (Glucagen Diagnostic Kit) 0 mg IM STAT PRN; Protocol PRN Reason: Hypoglycemia Protocol Piperacillin Sod/Tazobactam (Sod 3.375 gm/ Sodium Chloride) 100 mls @ 100 mls/ hr IVPB Q6 [facility] Last Admin: 10/16/16 04:32 Dose: 100 mls/hr Insulin Detemir (Levemir) 22 units SC HS [facility] Last Admin: 10/15/16 22:04 Dose: 22 units Insulin Human Lispro (Humalog) 0 units SC ACTID [facility] PRN Reason: Protocol Last Admin: 10/15/16 16:30 Dose: 4 units Ketorolac Tromethamine (Toradol) 15 mg IVP Q6 PRN PRN Reason: Pain, moderate (4-7) Last Admin: 10/15/16 12:13 Dose: 15 mg Ketorolac Tromethamine (Toradol) 30 mg IVP Q6 PRN PRN Reason: Pain, severe (8-10) Mirtazapine (Remeron) 15 mg PO HS [facility] Last Admin: 10/15/16 22:03 Dose: 15 mg Nicotine (Nicoderm Cq) 1 patch TD DAILY [facility] Last Admin: 10/15/16 16:24 Dose: 1 patch Ramipril (Altace) 5 mg PO HS [facility] Last Admin: 10/15/16 22:03 Dose: 5 mg - Labs Labs: 10/16/16 05:30 10/16/16 05:30 - Constitutional Appears: No Acute Distress - Head Exam Head Exam: NORMAL INSPECTION - Eye Exam Eye Exam: Normal appearance - ENT Exam ENT Exam: Mucous Membranes Moist - Neck Exam Neck Exam: Full ROM - Respiratory Exam Respiratory Exam: NORMAL BREATHING PATTERN - Cardiovascular Exam Cardiovascular Exam: REGULAR RHYTHM, +S1, +S2 - GI/Abdominal Exam GI & Abdominal Exam: Soft, Normal Bowel Sounds. absent: Tenderness - Extremities Exam Extremities Exam: absent: Calf Tenderness, Pedal Edema - Neurological Exam Neurological Exam: Alert, Awake, CN II-XII Intact, Oriented x3 - Psychiatric Exam Psychiatric exam: Normal Affect, Normal Mood - Skin Skin Exam: Dry, Intact Additional comments: ulcer on great toe, surrounding erythema proximal, No malodor, purulent drainage Assessment and Plan - Assessment and Plan (Free Text) Assessment: 46 year old female with uncontrolled DM admitted for infections of great toe of right foot. Osteomyleitis ruled out, will treat for cellulitis. Case was discussed with Dr. Hammond. Patient stable, to be on PO antibiotics,and follow up in [address] Patel. (1) Infected blister of great toe of right foot Assessment and Plan: OM ruled out, cellulitis unscheduled improved today on exam - ESR 44 - Podiatry following - ID Consult (Dr Hammond): appreciate recommendations: Clindamycin 300mg PO TID x 7 days. Status: Acute (2) Diabetes Assessment and Plan: Uncontrolled and apparently a chronic issue. Patient requires better glycemic control, follow up closely with Dr. Patel. - Referral to Sql Tech - Resume Levemir 22U, SC, HS - Accu-check ACHS - SSI, Lispro, moderate - Hypoglycemic Bundle - Hgb A1C: 12 - MOD CHO -patient Status: Acute (3) Hypertension Assessment and Plan: chronic, Stable.- Resume home medication Status: Acute (4) DVT prophylaxis Assessment and Plan: Lovenox 40mg, SC, HS Status: Acute <Leroy Moralez - Last Filed: 10/19/16 06:38> Objective - Vital Signs/Intake and Output Vital Signs (last 24 hours): Temp Pulse Resp BP Pulse Ox 99.4 F 70 18 155/93 H 96 10/16/16 16:03 10/16/16 16:03 10/16/16 16:03 10/16/16 16:03 10/16/16 16:03 - Labs Labs: 10/16/16 05:30 10/16/16 05:30 Attending/Attestation - Attestation I have personally seen and examined this patient.: Yes I have fully participated in the care of the patient.: Yes I have reviewed all pertinent clinical information, including history, physical exam and plan: Yes
[2016-10-16] MEDS: Insulin Lispro (humaLOG) 100 Units/ml Inj SC SCH ×3 (09:43→17:29)
--- NOTE | 2016-10-16 12:51 | MRI ---
PROCEDURE: MRI of the right foot with contrast HISTORY: rule out OM of right foot COMPARISON: There is no prior similar study available for comparison. X-ray of the right foot was obtained at 10/14/2016 TECHNIQUE: Axial coronal and sagittal MRI images of the right foot were obtained before and after IV contrast administration. FINDINGS: There is no evidence of bone marrow edema or cortical erosion to suggest acute/active osteomyelitis at the right foot. Mild arthritic changes seen at the visualize joints air at the mid and distal right foot. There is a heterogeneous diffuse soft tissue edema and swelling at the right foot. Suspicious for skin thickening more prominent at the big toe. Correlate clinically for cellulitis. No evidence of abscess formation. IMPRESSION: No MRI evidence of acute/ active osteomyelitis at the right foot. Soft tissue swelling and skin thickening more prominent at the right big toe suspicious for cellulitis. No evidence of fluid collection or abscess formation. Preliminary report was submitted by [facility].
--- NOTE | 2016-10-16 12:51 | CP.PCM.PN ---
Subjective - Date & Time of Evaluation Date of Evaluation: 10/16/16 Time of Evaluation: 07:00 - Subjective Subjective: denies fever or chills pain is less Objective - Vital Signs/Intake and Output Vital Signs (last 24 hours): Temp Pulse Resp BP Pulse Ox 98.4 F 82 20 122/85 98 10/16/16 07:51 10/16/16 07:51 10/16/16 07:51 10/16/16 07:51 10/16/16 07:51 - Medications Medications: Current Medications Acetaminophen (Tylenol 325mg Tab) 650 mg PO Q4 PRN PRN Reason: Pain, Mild (1-3) Last Admin: 10/15/16 23:47 Dose: 650 mg Atorvastatin Calcium (Lipitor) 10 mg PO HS [facility] Last Admin: 10/15/16 22:04 Dose: 10 mg Dextrose (Dextrose 50% Inj) 0 ml IV STAT PRN; Protocol PRN Reason: Hyglycemia Protocol Dextrose (Glutose 15) 0 gm PO ONCE PRN; Protocol PRN Reason: Hypoglycemia Protocol Enoxaparin Sodium (Lovenox) 40 mg SC HS [facility] PRN Reason: Protocol Last Admin: 10/15/16 22:05 Dose: 40 mg Glucagon (Glucagen Diagnostic Kit) 0 mg IM STAT PRN; Protocol PRN Reason: Hypoglycemia Protocol Piperacillin Sod/Tazobactam (Sod 3.375 gm/ Sodium Chloride) 100 mls @ 100 mls/ hr IVPB Q6 [facility] Last Admin: 10/16/16 09:46 Dose: 100 mls/hr Insulin Detemir (Levemir) 22 units SC HS [facility] Last Admin: 10/15/16 22:04 Dose: 22 units Insulin Human Lispro (Humalog) 0 units SC ACTID [facility] PRN Reason: Protocol Last Admin: 10/16/16 09:43 Dose: 3 units Ketorolac Tromethamine (Toradol) 15 mg IVP Q6 PRN PRN Reason: Pain, moderate (4-7) Last Admin: 10/15/16 12:13 Dose: 15 mg Ketorolac Tromethamine (Toradol) 30 mg IVP Q6 PRN PRN Reason: Pain, severe (8-10) Mirtazapine (Remeron) 15 mg PO HS [facility] Last Admin: 10/15/16 22:03 Dose: 15 mg Nicotine (Nicoderm Cq) 1 patch TD DAILY [facility] Last Admin: 10/16/16 09:45 Dose: 1 patch Ramipril (Altace) 5 mg PO HS [facility] Last Admin: 10/15/16 22:03 Dose: 5 mg - Labs Labs: 10/16/16 05:30 10/16/16 05:30 - Constitutional Appears: Non-toxic - Head Exam Head Exam: NORMOCEPHALIC - Eye Exam Eye Exam: PERRL - ENT Exam ENT Exam: Mucous Membranes Dry, Normal External Ear Exam - Neck Exam Neck Exam: absent: Lymphadenopathy - Respiratory Exam Respiratory Exam: Decreased Breath Sounds, Clear to Ausculation Bilateral - Cardiovascular Exam Cardiovascular Exam: REGULAR RHYTHM, +S1, +S2 - GI/Abdominal Exam GI & Abdominal Exam: Distended, Soft. absent: Tenderness - Rectal Exam Rectal Exam: Deferred - Exam Exam: NORMAL INSPECTION - Extremities Exam Extremities Exam: Tenderness. absent: Calf Tenderness, Pedal Edema Additional comments: Approx 0.2 cm ulcer noted to plantar aspect of patients right hallux. Periiwound area is erythematous extending to level of MTPJ. No malodor, purulent drainage or other clinical signs of infection appreciated at this time. No undermining or tunneling noted. - Back Exam Back Exam: absent: CVA tenderness (L), CVA tenderness (R) - Neurological Exam Neurological Exam: Alert, Awake, Oriented x3 Neuro motor strength exam: Left Upper Extremity: 5, Right Upper Extremity: 5, Left Lower Extremity: 5, Right Lower Extremity: 5 - Psychiatric Exam Psychiatric exam: Normal Affect, Normal Mood - Skin Skin Exam: Dry, Intact Assessment and Plan (1) Cellulitis Status: Acute (2) Diabetes Status: Acute (3) Hypertension Status: Acute (4) Infected blister of great toe of right foot Status: Acute (5) Uncontrolled diabetes mellitus Status: Acute - Assessment and Plan (Free Text) Assessment: wound culture and MRI pending cont iv then PO rx
[2016-10-16 16:03] VITALS: BP 155/93; PULSE 70; RESP 18; TEMP 99.4; O2SAT 96
== END 2016-10-16 18:05 | disposition home or self-care (01) | DRG 639 ==
LOC: H.ER 16:47 → H.ERHOLD 19:09 → H.MEDSURG1 20:38
PROVIDERS: ADMIT Family Medicine; ATTEND Family Medicine
DX: E11.628 Type 2 diabetes mellitus with other skin complications (principal); L03.031 Cellulitis of right toe; E11.621 Type 2 diabetes mellitus with foot ulcer; L97.519 Non-pressure chronic ulcer of other part of right foot with unspecified severity; E11.65 Type 2 diabetes mellitus with hyperglycemia; B95.1 Streptococcus, group B, as the cause of diseases classified elsewhere; I10 Essential (primary) hypertension; F17.210 Nicotine dependence, cigarettes, uncomplicated; Z79.4 Long term (current) use of insulin